=== PATIENT | female | born 1980 | race Hispanic/Latino ===

== ENCOUNTER 2017-07-20 13:37 | Emergency (ER) | payer SELFPAY ==
[2017-07-20] MEDS ORDERED: Dextrose 5% in Water 1,000 ML BAG ONE (13:49)
[2017-07-20] MEDS ORDERED: Sodium Chloride 0.9% 1,000 ML BAG ONE (13:49)
[2017-07-20] MEDS ORDERED: Thiamine HCl 200 MG/2 ML VIAL ONE (14:53)
[2017-07-20] MEDS ORDERED: Multivit, Adult Inj 10 ML VIAL ONE (14:53)
[2017-07-20] MEDS ORDERED: Lorazepam 2 MG/ML VIAL ONE (15:01)
[2017-07-20 15:12] LABS: ALT (SGPT) 84 U/L (8-55); AST (SGOT) 124 U/L (5-34); Acetaminophen Less than 6.0 mcg/mL (10.0-30.0); Albumin 4.1 g/dL (3.5-5.0); Alcohol 241 mg/dL (Less than 10); Alkaline Phosphatase 88 U/L (40-150); Anion Gap 20 mmol/L (10-20); BUN (Urea Nitrogen) 29 mg/dL (7.0-18.7); Bilirubin, Total 0.3 mg/dL (0.2-1.2); Calc. Creatinine Clearance 0 mL/min (70-130); Calcium 8.9 mg/dL (7.8-10.44); Carbon Dioxide 21 mmol/L (22-29); Chloride 109 mmol/L (98-107); Estimated GFR-MDRD 47; Globulin 2.7 g/dL (2.4-3.5); Glucose 102 mg/dL (70-105); Potassium 4.3 mmol/L (3.5-5.1); Protein, Total 6.8 g/dL (6.0-8.3); Salicylate Less than 8.0 mg/dL (15.0-30.0); Sodium 146 mmol/L (136-145)
[2017-07-20 15:13] LABS: Amphetamine Not Detected (NotDetected); Barbiturates Screen Not Detected (NotDetected); Benzodiazepine Screen Detected (NotDetected); Cocaine Metabolite Screen Not Detected (NotDetected); Medtox Control Line Valid? VALID (VALID); Methadone Not Detected (NotDetected); Methamphetamine Not Detected (NotDetected); Opiate Screen Not Detected (NotDetected); Oxycodone Screen Not Detected (NotDetected); Phencyclidine (PCP) Not Detected (NotDetected); THC/Cannabinoid Screen Not Detected (NotDetected); Tricyclic Screen Not Detected (NotDetected)
[2017-07-20 15:20] LABS: Pregnancy Test - Urine (BHCG) Negative (Negative); Pregu Control Background? CLEAR/WHITE (CLR/WHITE); Pregu Control Bar Appear? YES (CONTROL BAR)
[2017-07-20 15:22] LABS: #Basophils 0.1 thou/uL (0.0-0.2); #Eosinphils 0.1 thou/uL (0.0-0.7); #Lymphocytes 1.3 thou/uL (1.20-3.40); #Monocytes 0.3 thou/uL (0.11-0.59); #Neutrophils 1.5 thou/uL (1.40-6.50); %Basophils 2.5 % (0.0-1.0); %Eosinophils 2.5 % (0.0-10.0); %Lymphocytes 40.2 % (21.0-51.0); %Monocytes 8.6 % (0.0-10.0); %Neutrophils 46.2 % (42.0-75.0); Hemoglobin 10.6 g/dL (12.0-16.0); Hypochromia SLIGHT = 6-15 cells (100X) (0-5/hpf); MDiff Complete? YES; Mean Corpuscular HGB CONC 32.6 g/dL (32.0-36.0); Mean Corpuscular Volume 107.4 fl (81.0-99.0); Mean Platelet Volume 5.4 fL (7.4-10.4); PLT Morphology Comment Appears Decreased; Platelet Count 82 thou/uL (130-400); RBC Distribution Width 15.9 % (11.5-14.5); Red Blood Cell (RBC) Count 3.02 mill/uL (4.20-5.40); White Blood Cell (WBC) Count 3.3 thou/uL (4.8-10.8)
== END 2017-07-20 16:44 | disposition home or self-care (01) ==
LOC: MADERS 13:37
DX: F10.239 Alcohol dependence with withdrawal, unspecified (principal); I10 Essential (primary) hypertension; F31.9 Bipolar disorder, unspecified; Y90.8 Blood alcohol level of 240 mg/100 ml or more; F17.210 Nicotine dependence, cigarettes, uncomplicated
CPT/HCPCS: 80053; 80306; 80307; 81025; 84443; 85025; 96361; 96374; 96375; J2060; J3411; J7050; J7070

== ENCOUNTER 2018-01-23 08:49 | Outpatient (CLI) | payer MEDICAID ==
--- NOTE | 2018-01-23 11:37 | ULT ---
PELVIC ULTRASOUND: DATE: 01/23/2018. COMPARISON: None. HISTORY: Abnormal Pap smear. TECHNIQUE: Multiplanar, malone scale sonographic imaging of the pelvis obtained with transabdominal and endovagina l imaging. The left ovary are assessed with color flow and spectral analysis. FINDINGS: Endometrial stripe is 1.1 cm, within normal limits. Nabothian cysts are seen within the cervix. The uterus measures 7.9 x 4.3 x 5.9 cm. Along the posterior aspect of the cervix/lower uterine segment on image 43 of 77, there is a nonspeci fic hypoechoic lesion measuring 1.3 x 1.0 cm. The right ovary could not be visualized despite transabdominal and endovaginal imaging. The left ovary measures 2.7 x 2.2 x 2.5 cm and demonstrates normal blood flow without evidence for ma ss. No free fluid is seen in the pelvis. IMPRESSION: Small nonspecific hypoechoic lesion noted along the posterior aspect of the cervix/lower uterine segm ent measuring 1.3 x 1.0 cm as detailed above. This could represent a complex nabothian cyst or a carlos id mass. Recommend MRI of the pelvis with and without contrast for further assessment. CODE T POS: KIRAN
== END 2018-01-23 08:50 | disposition home or self-care (01) ==
LOC: MADULT 08:49
PROVIDERS: ATTEND Family Medicine
DX: Z01.411 Encounter for gynecological examination (general) (routine) with abnormal findings (principal); N85.9 Noninflammatory disorder of uterus, unspecified
CPT/HCPCS: 76856

== ENCOUNTER 2018-05-10 12:19 | Emergency (ER) | payer BC, MEDICAID ==
[2018-05-10] MEDS ORDERED: diphenhydrAMINE 50 MG/ML VIAL ONE (14:16)
[2018-05-10] MEDS ORDERED: Ketorolac Tromethamine 30 MG/ML VIAL ONE (14:16)
[2018-05-10] MEDS ORDERED: Prochlorperazine 10 MG/2 ML VIAL ONE (14:16)
[2018-05-10] MEDS ORDERED: Oseltamivir 75 MG CAP ONE (16:17)
== END 2018-05-10 17:00 | disposition home or self-care (01) ==
LOC: MADERS 12:19
DX: J11.1 Influenza due to unidentified influenza virus with other respiratory manifestations (principal); I10 Essential (primary) hypertension; F31.9 Bipolar disorder, unspecified; F17.210 Nicotine dependence, cigarettes, uncomplicated
CPT/HCPCS: 87081; 87430; 87804; 96372; J0780; J1200; J1885